=== PATIENT | male | born 1995 | race Caucasian/White ===

== ENCOUNTER 2019-10-31 19:03 | Emergency (ER) | payer BC ==
[2019-10-31] MEDS ORDERED: Adacel (T-DAP) 0.5 ML SYRINGE ONE (19:28)
[2019-10-31] MEDS ORDERED: Lidocaine 1% 20 ML MDV ONE (19:41)
--- NOTE | 2019-10-31 20:07 | RAD ---
RIGHT FINGER THREE VIEWS: HISTORY: Crush injury. COMPARISON: None. FINDINGS: There is an open fracture at the tuft and diaphysis of the distal phalanx small finger. There is expo sed bone with near complete circumferential soft tissue amputation. The index finger appears to be spared of an osseous abnormality although there is a dorsal soft tissu e laceration at the level of the middle phalanx diaphysis. IMPRESSION: 1. Open displaced fracture of the distal phalanx diaphysis and tuft of the small finger with near com plete soft tissue amputation. 2. Dorsal soft tissue laceration at the level of the middle phalanx diaphysis ring finger. POS: HOME
[2019-10-31] MEDS ORDERED: Amoxicillin/Potassium Clav 875 MG TAB ONE (20:44)
[2019-10-31] MEDS ORDERED: Sodium Chloride Irrig Solution 250 ML ONE (22:08)
== END 2019-10-31 21:12 | disposition home or self-care (01) ==
LOC: MADERS 19:03
DX: S61.214A Laceration without foreign body of right ring finger without damage to nail, initial encounter (principal); S68.126A Partial traumatic metacarpophalangeal amputation of right little finger, initial encounter; I10 Essential (primary) hypertension; Z79.899 Other long term (current) drug therapy; Z23 Encounter for immunization; W23.0XXA Caught, crushed, jammed, or pinched between moving objects, initial encounter
CPT/HCPCS: 26951; 90471; 90715; J2001